=== PATIENT | male | born 1970 | race Caucasian/White ===

== ENCOUNTER 2017-01-22 01:30 | Emergency (ER) | payer MEDICAID ==
[2017-01-22 03:24] VITALS: BP 149/80
== END 2017-01-22 03:24 | disposition home or self-care (01) ==
LOC: ED 01:30
DX: M10.071 Idiopathic gout, right ankle and foot (principal); Z88.0 Allergy status to penicillin
CPT/HCPCS: J1170; J1885; Q0162

== ENCOUNTER 2017-04-18 11:37 | Emergency (ER) | payer MEDICAID ==
[~2017-04-18] VITALS: Ht 175.3 cm; Wt 111.8 kg
[2017-04-18 11:57] VITALS: Ht 175.3 cm; Wt 111.8 kg
[2017-04-18 13:38] VITALS: BP 153/62
== END 2017-04-18 13:38 | disposition home or self-care (01) ==
LOC: ED 11:37
DX: B34.9 Viral infection, unspecified (principal); R03.0 Elevated blood-pressure reading, without diagnosis of hypertension; Z88.0 Allergy status to penicillin
CPT/HCPCS: J1885; J7613; J7644; Q0162

== ENCOUNTER 2017-06-22 18:08 | Emergency (ER) | payer OTHER ==
[~2017-06-22] VITALS: Ht 175.3 cm; Wt 113.8 kg
[2017-06-22 18:11] VITALS: Ht 175.3 cm; Wt 113.8 kg
[2017-06-22 19:49] VITALS: BP 130/73
== END 2017-06-22 19:49 | disposition home or self-care (01) ==
LOC: ED 18:08
DX: J20.9 Acute bronchitis, unspecified (principal); R03.0 Elevated blood-pressure reading, without diagnosis of hypertension; Z88.0 Allergy status to penicillin
CPT/HCPCS: J2930; J7613; J7620

== ENCOUNTER 2018-07-07 13:35 | Emergency (ER) | payer OTHER ==
[~2018-07-07] VITALS: Ht 175.3 cm; Wt 123.8 kg
[2018-07-07 14:07] VITALS: Ht 175.3 cm; Wt 123.8 kg
[2018-07-07 14:57] LABS: BASOPHIL % 0.5 % (0-2); PLATELET COUNT 235 x10^3mcL (130-400)
[2018-07-07 14:58] LABS: RED CELL DISTRIBUTION WIDTH 14.9 % (11.5-14.5)
[2018-07-07 15:12] LABS: CALCIUM 9.4 mg/dL (8.5-10.1); CARBON DIOXIDE 31.4 mmol/L (21-32); CHLORIDE SERUM 103 mmol/L (98-107); CREATININE SERUM 1.3 mg/dL (0.7-1.3); GFR1 > 60 mL/min; GLUCOSE SERUM 93 mg/dL (74-106); POTASSIUM SERUM 4.1 mmol/L (3.5-5.1); SODIUM SERUM 141 mmol/L (136-145)
[2018-07-07 15:25] LABS: ALBUMIN 3.8 g/dL (3.4-5.0); ALKALINE PHOSPHATASE 36 U/L (46-116); ALT/SGPT 69 U/L (16-63); AST/SGOT 55 U/L (15-37); BILIRUBIN TOTAL 0.32 mg/dL (0.20-1.00)
[2018-07-07 15:29] LABS: T4(THYROXINE) 0.7 ug/dL (4.7-13.3); TOTAL PROTEIN, SERUM 8.6 g/dL (6.4-8.2)
[2018-07-07 16:13] VITALS: BP 128/79
== END 2018-07-07 16:13 | disposition home or self-care (01) ==
LOC: ED 13:35
PROVIDERS: Emergency Medicine
DX: E03.9 Hypothyroidism, unspecified (principal); R51 Headache; R14.0 Abdominal distension (gaseous); Z88.0 Allergy status to penicillin
CPT/HCPCS: 36415

== ENCOUNTER 2018-08-04 21:03 | Emergency (ER) | payer OTHER ==
[~2018-08-04] VITALS: Ht 175.3 cm; Wt 122.5 kg
[2018-08-04 21:40] VITALS: Ht 175.3 cm; Wt 122.5 kg
[2018-08-04 22:08] LABS: BASOPHIL % 0.7 % (0-2); PLATELET COUNT 233 x10^3mcL (130-400)
[2018-08-04 22:11] LABS: RED CELL DISTRIBUTION WIDTH 14.8 % (11.5-14.5)
[2018-08-04 22:24] LABS: CALCIUM 8.9 mg/dL (8.5-10.1); CARBON DIOXIDE 33.3 mmol/L (21-32); CREATININE SERUM 1.4 mg/dL (0.7-1.3); POTASSIUM SERUM 4.4 mmol/L (3.5-5.1)
[2018-08-04 22:28] LABS: ALBUMIN 3.8 g/dL (3.4-5.0); BILIRUBIN TOTAL 0.4 mg/dL (0.20-1.00); TOTAL PROTEIN, SERUM 8.1 g/dL (6.4-8.2)
[2018-08-05 00:02] VITALS: BP 137/91
== END 2018-08-05 00:02 | disposition home or self-care (01) ==
LOC: ED 21:03
DX: R10.31 Right lower quadrant pain (principal); E03.9 Hypothyroidism, unspecified; Z88.0 Allergy status to penicillin
CPT/HCPCS: 36415; J1885

== ENCOUNTER 2018-10-07 13:14 | Emergency (ER) | payer OTHER ==
[~2018-10-07] VITALS: Ht 175.3 cm; Wt 119.7 kg
[2018-10-07 13:31] VITALS: BP 142/89; Ht 175.3 cm; Wt 119.7 kg
== END 2018-10-07 17:26 | disposition home or self-care (01) ==
LOC: ED 13:14
DX: L03.116 Cellulitis of left lower limb (principal); Z88.0 Allergy status to penicillin; E03.9 Hypothyroidism, unspecified
CPT/HCPCS: J1885; Q0162

== ENCOUNTER 2018-12-27 21:32 | Emergency (ER) | payer OTHER ==
[~2018-12-27] VITALS: Ht 175.3 cm; Wt 128.4 kg
[2018-12-27 21:59] VITALS: Ht 175.3 cm; Wt 128.4 kg
[2018-12-27 23:04] VITALS: BP 131/84
== END 2018-12-27 23:04 | disposition home or self-care (01) ==
LOC: ED 21:32
DX: M10.9 Gout, unspecified (principal); E03.9 Hypothyroidism, unspecified; Z88.0 Allergy status to penicillin

== ENCOUNTER 2019-04-22 10:38 | Emergency (ER) | payer OTHER ==
[~2019-04-22] VITALS: Ht 175.3 cm; Wt 120.8 kg
[2019-04-22 10:58] VITALS: BP 117/84; Ht 175.3 cm; Wt 120.8 kg
== END 2019-04-22 13:45 | disposition home or self-care (01) ==
LOC: ED 10:38
DX: M10.072 Idiopathic gout, left ankle and foot (principal); E03.9 Hypothyroidism, unspecified; Z88.0 Allergy status to penicillin
CPT/HCPCS: J1100; J1885

== ENCOUNTER 2019-05-11 18:47 | Emergency (ER) | payer SELFPAY ==
[~2019-05-11] VITALS: Ht 170.2 cm; Wt 121.6 kg
[2019-05-11 19:26] VITALS: Ht 170.2 cm; Wt 121.6 kg
[2019-05-11 20:26] VITALS: BP 141/82
== END 2019-05-11 20:27 | disposition home or self-care (01) ==
LOC: ED 18:47
DX: H66.92 Otitis media, unspecified, left ear (principal); M10.072 Idiopathic gout, left ankle and foot; E03.9 Hypothyroidism, unspecified; Z88.0 Allergy status to penicillin

== ENCOUNTER 2019-05-31 23:40 | Emergency (ER) | payer SELFPAY ==
[~2019-05-31] VITALS: Ht 175.3 cm; Wt 122.0 kg
[2019-06-01 00:22] VITALS: Ht 175.3 cm; Wt 122.0 kg
[2019-06-01 02:02] VITALS: BP 123/61
== END 2019-06-01 02:02 | disposition home or self-care (01) ==
LOC: ED 23:40
DX: H60.92 Unspecified otitis externa, left ear (principal); Z88.0 Allergy status to penicillin; E03.9 Hypothyroidism, unspecified

== ENCOUNTER 2019-10-04 20:23 | Emergency (ER) | payer MEDICAID ==
[~2019-10-04] VITALS: Ht 175.3 cm; Wt 124.4 kg
[2019-10-04 20:29] VITALS: Ht 175.3 cm; Wt 124.4 kg
[2019-10-04 21:20] VITALS: BP 128/89
== END 2019-10-04 21:21 | disposition home or self-care (01) ==
LOC: ED 20:23
DX: S39.012A Strain of muscle, fascia and tendon of lower back, initial encounter (principal); R03.0 Elevated blood-pressure reading, without diagnosis of hypertension; E03.9 Hypothyroidism, unspecified; M10.9 Gout, unspecified; Z88.0 Allergy status to penicillin; X58.XXXA Exposure to other specified factors, initial encounter; Y93.B9 Activity, other involving muscle strengthening exercises; Y92.89 Other specified places as the place of occurrence of the external cause; Y99.8 Other external cause status
CPT/HCPCS: J1885

== ENCOUNTER 2019-10-10 12:45 | Emergency (ER) | payer MEDICAID ==
[~2019-10-10] VITALS: Ht 175.3 cm; Wt 125.6 kg
[2019-10-10 13:00] VITALS: BP 150/80; Ht 175.3 cm; Wt 125.6 kg
== END 2019-10-10 14:15 | disposition home or self-care (01) ==
LOC: ED 12:45
DX: H60.92 Unspecified otitis externa, left ear (principal); K21.9 Gastro-esophageal reflux disease without esophagitis; K59.00 Constipation, unspecified; E03.9 Hypothyroidism, unspecified; M10.9 Gout, unspecified; Z88.0 Allergy status to penicillin

== ENCOUNTER 2019-12-25 17:57 | Emergency (ER) | payer SELFPAY ==
[~2019-12-25] VITALS: Ht 175.3 cm; Wt 123.8 kg
[2019-12-25 18:04] VITALS: Ht 175.3 cm; Wt 123.8 kg
[2019-12-25 19:24] VITALS: BP 150/79
== END 2019-12-25 19:24 | disposition home or self-care (01) ==
LOC: ED 17:57
DX: R51 Headache (principal); K21.9 Gastro-esophageal reflux disease without esophagitis; E03.9 Hypothyroidism, unspecified; M10.9 Gout, unspecified; Z88.0 Allergy status to penicillin
CPT/HCPCS: J1885; Q0162

== ENCOUNTER 2020-04-11 20:37 | Emergency (ER) | payer MEDICAID ==
[~2020-04-11] VITALS: Ht 175.3 cm; Wt 97.5 kg
[2020-04-11 20:45] VITALS: Ht 175.3 cm; Wt 97.5 kg
[2020-04-11 21:14] LABS: BASOPHIL % 0.8 % (0.2-1.5); PLATELET COUNT 226 x10^3mcL (152-348)
[2020-04-11 21:15] LABS: RED CELL DISTRIBUTION WIDTH 17.5 % (12.1-16.2)
[2020-04-11 21:31] LABS: CALCIUM 9.4 mg/dL (8.5-10.1); CARBON DIOXIDE 28.6 mmol/L (21-32); CREATININE SERUM 1.6 mg/dL (0.7-1.3); POTASSIUM SERUM 3.8 mmol/L (3.5-5.1)
[2020-04-11 21:36] LABS: BILIRUBIN TOTAL 0.45 mg/dL (0.20-1.00); TOTAL PROTEIN, SERUM 8.5 g/dL (6.4-8.2)
[2020-04-12 02:14] VITALS: BP 124/64
== END 2020-04-12 02:14 | disposition home or self-care (01) ==
LOC: ED 20:37
PROVIDERS: Emergency Medicine
DX: R07.89 Other chest pain (principal)